=== PATIENT | male | born 1945 | race Caucasian/White ===

== ENCOUNTER 2016-10-18 09:45 | Day surgery (SDC) | payer OTHER ==
[2016-10-18] MEDS ORDERED: BENADRYL ONE (09:49)
[2016-10-18] MEDS ORDERED: TYLENOL ONE (09:49)
[2016-10-18] MEDS ORDERED: NS 250 ML ONE (09:50)
[2016-10-18 11:01] VITALS: BP 122/58
== END 2016-10-18 11:10 | disposition home or self-care (01) ==
LOC: OPS 09:45
PROVIDERS: ATTEND Internal Medicine Medical Oncology
DX: D69.6 Thrombocytopenia, unspecified (principal); Z79.899 Other long term (current) drug therapy
CPT/HCPCS: 36415; 36430; 86850; 86900; 86901; 86920; J1200; J7050; P9035

== ENCOUNTER 2017-03-03 18:10 | Inpatient (IN) ==
--- NOTE | 2017-03-03 18:51 | Diag Imaging Result Doc PS360 ---
EXAM: CHEST-PORTABLE HISTORY: confusion, poss sepsis TECHNIQUE: AP portable upright at 1840 COMMENT: There is COPD. The heart size and pulmonary vascularity are within normal limits. There are no previous studies. There is a suprahilar opacity in the right upper lobe suspicious for neoplasm. Comparison with previous radiographs would be helpful. 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 IMPRESSION: COPD. Pneumonia versus mass in the right upper lobe. Advise further evaluation and/or comparison with previous studies. Electronically signed by Jair Lima 03/03/2017 6:49 PM
[2017-03-03 19:00] LABS: HEMOGLOBIN 4.4 g/dL (14.0-18.0); INR 1.31; PTT 20.9 Seconds (22.0-36.0)
[2017-03-03 19:01] LABS: PLT < 6 X1000 (130-400)
[2017-03-03 19:02] LABS: BASO% 0.3 % (0.0-0.8); EOS# 0.01 X1000 (0.0-0.7); EOS% 0.3 % (0.0-10.0); HEMATOCRIT 13.5 % (42.0-52.0); IMM GRAN# 0.09 X1000 (0.0-0.04); IMM GRAN% 3.1 % (0.0-0.5); LYMPH# 0.95 X1000 (1.2-3.4); LYMPH% 32.6 % (20.5-51.1); MANUAL DIFF NEEDED? NO; MCH 30.1 PG (27-31); MCHC 32.6 g/dL (33-37); MCV 92.5 FL (81-99); MONO# 1.77 X1000 (0.11-0.59); MONO% 60.8 % (1.7-9.3); NEUT% 2.9 % (42.2-75.2); RBC 1.46 XMIL (4.7-6.1)
[2017-03-03 19:24] LABS: ALBUMIN 3.6 g/dL (3.5-5.0); CALCIUM 8.3 mg/dL (8.8-10.2); POTASSIUM 4.3 mmol/L (3.5-5.1); TOTAL BILIRUBIN 0.65 mg/dL (0.20-1.00); TOTAL PROTEIN 6.5 g/dL (6.3-8.3)
--- NOTE | 2017-03-03 20:28 | Diag Imaging Result Doc PS360 ---
EXAM: HEAD W/O CONTRAST HISTORY: fall TECHNIQUE: CT of the head without contrast COMMENT: There is mucosal thickening in the right maxillary sinus and throughout the ethmoids worse on the right than the left. There is also mucosal thickening in the right sphenoid sinus which is much larger than the left. There is no evidence of acute bony abnormality. There is a lucent lesion in the right parietal bone laterally which is probably a prominent arachnoid granulation. No evidence of bleed or mass effect is present. There are calcifications in the vertebral and internal carotid arteries. There is focal lucency in the left frontal white matter. This is probably due to microvascular ischemic change. There are no previous studies available for comparison. IMPRESSION: No evidence of acute intracranial disease. Chronic microvascular ischemic change. Chronic sinus disease. Electronically signed by Jair Lima 03/03/2017 8:26 PM
--- NOTE | 2017-03-03 21:09 | HISTORY AND PHYSICAL ---
PRIMARY CARE PHYSICIAN: Dr. Dread Chamberlain. PRIMARY ONCOLOGIST: Dr. Ajit Dong. CHIEF COMPLAINT: Unresponsive and feeling weak. HISTORY OF PRESENT ILLNESS: This is a 71-year-old male with a past medical history of leukemia and COPD, who was brought to the emergency department by ambulance because the son had found him down on the floor. Patient lives next to his son. According to him, according to the patient too, the patient was feeling weak for the last couple of days. He was very tired. He was not sure if he was having a fever. He was coughing, but because of the COPD, he said that he had his usual cough pattern. He also reports diarrhea 6-10 times that started today. He also reported black stools that started today too. It is important to remark that 1 week ago, he went to see Dr. Dong, and apparently they checked the CBC, so he was sent to the ER at [facility], where he received 2 units of blood and also platelets, and then he was discharged. In the ER, he was evaluated and found to have a hemoglobin of 4.4, with platelets of less than 6000, and neutrophil count of 80 absolute count, so he is being admitted to the hospital for further stabilization and treatment. PAST MEDICAL HISTORY: 1. COPD. 2. Leukemia. He does not recall the specific type of leukemia this patient has. PAST SURGICAL HISTORY: 1. Appendectomy. 2. Back surgery. SOCIAL HISTORY: He denies drinking alcohol, smoking tobacco, or using drugs. He lives alone, but the son lives next door. ALLERGIES: He reports no known drug allergies. REVIEW OF SYSTEMS: All 11 systems were reviewed, and all symptoms are related to H P. PHYSICAL EXAMINATION: VITAL SIGNS: Temperature 97.9 degrees, heart rate 111, respiratory rate 26, blood pressure 103/53, O2 saturation 94% on room air. GENERAL: This is a chronically ill-looking, cachectic, malnourished 71-year-old male, lying in bed, in no acute distress. HEENT: Head: In the right eye, there is a small superficial hematoma around all of the orbit. Apparently, no trauma to the eye itself. No hemorrhage in the eye. Pupils equal, round, and reactive to light and accommodation. NECK: Supple. No JVD noted. No carotid bruits. No lymphadenopathy. No thyromegaly. CARDIOVASCULAR: S1-S2 heard. Tachycardic. No murmurs, gallops, or rubs. Regular rate and rhythm. RESPIRATORY: Decreased breath sounds globally. There is no wheezing. Patient is not using any accessory muscles or heavy work of breathing. ABDOMEN: Soft, nondistended to palpation. Bowel sounds present. No organomegaly. EXTREMITIES: No clubbing, cyanosis, or edema. Peripheral pulses present in both legs. NEUROLOGICAL: Patient alert oriented x3. Able to move 4 extremities. Cranial nerves 2-12 grossly normal. LABORATORY DATA: Remarkable for hemoglobin 4.4, hematocrit 13.5, platelets of less than 6000, neutrophil count 80, absolute neutrophil count. INR 1.31. Creatinine 2.1, with BUN 81. Glucose 223. ASSESSMENT: 1. Severe anemia. 2. Severe thrombocytopenia. 3. Leukemia. 4. Chronic obstructive pulmonary disease. PLAN: The patient is going to be admitted to the hospital because of the severe anemia and thrombocytopenia. We are going to consult Dr. Dong for this condition. In the ER, he has an order for 4 units of blood, plus 1 unit of platelets. We are going to check CBC tomorrow. As we mentioned before, patient was found on the floor, although upon my examination, the patient is oriented and awake, and also able to remember everything what happened. He is not sure for how long he was down. We are going to order a CT of the head, considering his high risk for intracranial bleeding. For chronic obstructive pulmonary disease, we are going to continue with nebulizations with DuoNeb every 2-4 hours as needed for shortness of breath. Also, we are going to provide IV fluids with normal saline at 75 mL/hour. His primary care physician, Dr. Dread Chamberlain, will resume his care tomorrow morning at 7 a.m. cc: Gustavo Ramos MD
[2017-03-03] MEDS ORDERED: DUONEB (A & A) INH PRN (21:14)
[2017-03-03] MEDS ORDERED: ZOFRAN IV PRN (21:14)
[2017-03-03] MEDS: PROTONIX IV SCH (22:12)
[2017-03-03] MEDS: NS 1,000 ML IV SCH (22:12)
[2017-03-03] MEDS: LYRICA PO SCH (22:12)
[2017-03-03] MEDS: SODIUM CHLORIDE 0.9% INJ SCH (22:12)
[2017-03-03] MEDS: MAXIPIME 1 GM/NS 1 GM/50 ML IVPB IV SCH (22:13)
[2017-03-03 22:47] LABS: CK INDEX 1.2 (0.0-2.5); CK-MB 2.88 ng/mL (0.0-5.0)
[2017-03-04 07:25] LABS: HEMATOCRIT 19.3 % (42.0-52.0); HEMOGLOBIN 6.1 g/dL (14.0-18.0); LYMPH% 18.7 % (20.5-51.1); MANUAL DIFF NEEDED? YES; MCH 26.9 PG (27-31); MCHC 31.6 g/dL (33-37); MONO% 80.9 % (1.7-9.3); MPV 10.8 FL (7.4-10.4); NEUT% 0.4 % (42.2-75.2); PLT 20 X1000 (130-400); RBC 2.27 XMIL (4.7-6.1)
[2017-03-04 07:32] LABS: CALCIUM 7.8 mg/dL (8.8-10.2); POTASSIUM 4.1 mmol/L (3.5-5.1)
[2017-03-04 07:58] LABS: LYMPHS 30 % (21-51); MONO 66 % (1-9)
[2017-03-04] MEDS: ZANTAC PO SCH ×2 (09:07→21:48)
[2017-03-04] MEDS: PERCOCET-5 PO PRN ×4 (09:07→23:12)
[2017-03-04] MEDS: LYRICA PO SCH ×2 (09:08→21:48)
[2017-03-04] MEDS: MAXIPIME 1 GM/NS 1 GM/50 ML IVPB IV SCH ×2 (09:54→21:47)
[2017-03-04] MEDS: SODIUM CHLORIDE 0.9% INJ SCH (09:55)
[2017-03-04] MEDS: PROTONIX IV SCH ×3 (09:55→21:49)
[2017-03-04] MEDS: NS 1,000 ML IV SCH ×2 (10:40→21:48)
--- NOTE | 2017-03-04 14:37 | PROGRESS NOTE ---
DATE: 03/04/2017 SUBJECTIVE: The patient has no complaints. We discussed his ongoing treatment and the situation he is in now. We were hard pressed to get him to admit that he actually had dark stools but his son confirmed that he was having very dark stools and this was a new finding for him. OBJECTIVE: Vital signs: Temperature 97.5 degrees, 71, 17, 128/90. General: He is a thin white male, in no acute distress. He is alert, oriented, conversive, and appropriate. He does have obvious signs of weight loss when compared to the last time I saw him. He has a slight ecchymosis under the right eye. He has blood infusing. Cardiovascular: Regular. Lungs: Are clear. Extremities: No peripheral edema. ASSESSMENT AND PLAN: 1. The patient is pancytopenic and has been transfused 4 units of red cells. We will recheck his blood count in the morning. Platelet count is 20,000. I will allow any decision making in regards transfusion of platelets to Dr. Dong. 2. The patient's low white cell count is being addressed as a neutropenic situation, he is getting some broad-spectrum antibiotics until this level comes up if indeed it does so at all. 3. The patient requests pain medications which were written for him. He knows that he can ask for those p.r.n. 4. Consultation with Dr. Dong is today. cc: Dread Chamberlain MD
--- NOTE | 2017-03-04 16:35 | CONSULTATION ---
DATE OF CONSULTATION: 03/04/2017 REASON FOR CONSULT: The patient is known to us with acute leukemia/MDS and also ITP with positive antiplatelet antibody. 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 He is status post cycle 2 of Dacogen last on February 20, he is also receiving Nplate last on 02/26. He is essentially transfusion- dependent. We saw him in our office on 02/26 where white count was 2.5, granulocytes were 600, hemoglobin 7.8, hematocrit 24.3, and platelet count of 3000 and we sent him for 1 unit of single donor platelets at that time. We are not giving him any Neupogen due to increased blasts. His son apparently found the patient on the floor several days ago after he had been feeling weak over the last couple days and black diarrhea 6-10 times a day. He does have a cough that is stable. He does have known COPD. Denies any fever or chills, new lumps, bumps or worsening bone pain. Upon admission to the ER white count was 2.9, hemoglobin 4.4, hematocrit 13.5, platelet count was less than 6 and 4 units of PRBCs have been ordered along with 1 unit of platelet. He has received the platelets and 4 units packed red cells are infusing. Repeat labs this morning showed a white count of 4.82, hemoglobin of 6.1 and a platelet count of 20,000. He still has 1 more unit of PRBCs to be transfused. He has also been placed on cefepime. Imaging has been obtained of his head. Head CT showed no acute intracranial processes. Chest x-ray showed suprahilar opacity right upper lobe. He is currently on cefepime. REVIEW OF SYSTEMS: Negative unless indicated in the HPI. 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 3. COPD. 4. 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 ALLERGIES: No known allergies. SOCIAL HISTORY: Patient denies alcohol, illicit drugs or tobacco use. PHYSICAL EXAMINATION: Vital Signs: Stable. Constitutional: This is a frail- appearing male in no acute distress. HEENT: Head is normocephalic, atraumatic. Pupils equal, round, symmetric. Mucous membranes are dry. Cardiovascular: S1, S2 audible auscultation with no heaves, lifts, thrills, or murmurs. Pulmonary: Diminished bilateral breath sounds with normal respiratory effort. Abdomen: Soft, nontender. Positive bowel sounds in all 4 quadrants. Skin: No petechiae, ecchymosis or rash. Musculoskeletal: Moves all extremities. Neurologic: Alert, orient x3. LABORATORY DATA: Imaging as above. White count 4.82, hemoglobin 6.1, platelet count 20,000. ASSESSMENT AND PLAN: 1. 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 He is on Dacogen and Nplate and he is transfusion dependent at this time. 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 Transfuse on a p.r.n. basis. His counts have improved after transfusion but patient is transfusion dependent. Would not give it any Neupogen due to increased blasts. He is currently on cefepime at this time. 2. Chronic obstructive pulmonary disease. Chest x-ray showed pneumonia versus right upper lobe mass. May require a CT scan, again he is on cefepime. 3. Diarrhea is improved. Per primary care. Dictated by AMY Mendez for Ajit Dong MD cc: AMY Mendez MD Timothy P. Weirich, MD [facility] MED[facility] CENTERJace
[2017-03-05] MEDS: NS 1,000 ML IV SCH ×2 (01:11→16:27)
[2017-03-05 06:35] LABS: EOS# 0.03 X1000 (0.0-0.7); HEMATOCRIT 21.8 % (42.0-52.0); HEMOGLOBIN 7.2 g/dL (14.0-18.0); IMM GRAN# 0.02 X1000 (0.0-0.04); IMM GRAN% 0.6 % (0.0-0.5); LYMPH# 0.78 X1000 (1.2-3.4); LYMPH% 25.1 % (20.5-51.1); MANUAL DIFF NEEDED? YES; MCH 28.1 PG (27-31); MCV 85.2 FL (81-99); MONO# 2.22 X1000 (0.11-0.59); MONO% 71.4 % (1.7-9.3); MPV 10.6 FL (7.4-10.4); NEUT% 1.9 % (42.2-75.2); RBC 2.56 XMIL (4.7-6.1)
[2017-03-05 06:48] LABS: PLT 9 X1000 (130-400)
[2017-03-05 06:50] LABS: AGAP 11; BUN 40 mg/dL (8-22); CALCIUM 7.2 mg/dL (8.8-10.2); CHLORIDE 105 mmol/L (98-107); COSMO 284; SODIUM 137 mmol/L (136-145); TCO2 21 mmol/L (25-35)
[2017-03-05 07:13] LABS: LYMPHS 36 % (21-51); MONO 44 % (1-9); NRBC 1 % (0-0)
[2017-03-05] MEDS ORDERED: BENADRYL IV ONE (07:56)
[2017-03-05] MEDS ORDERED: TYLENOL PO ONE (07:56)
--- NOTE | 2017-03-05 08:02 | PROGRESS NOTE ---
DATE: 03/04/2017 This was dictating yesterday at the nursing station but unfortunately the note has disappeared from the computer systems. This is a dictation for the day of 03/04/2017. SUBJECTIVE: Patient was admitted overnight with low blood counts. An order for 4 units of packed red cells was given as well as a consult for Dr. Dong. This is pending at the time of original note dictation 03/04/2017. The patient states he has received 3 units of packed red cells and is on his 4th unit now. He feels a little bit better. He states that he needs more pain medication. I spoke at length with the patient's son who is at bedside. The patient was reluctant to admit that he had dark stools but the patient's son confirmed this. He denies the use of Pepto-Bismol. OBJECTIVE: Vital Signs: Temperature 97.6, blood pressure 114/53, pulse 77, respiratory rate of 18, 100% saturated on 2 L nasal cannula. General: Thin, pale, white male, in no acute distress. He is alert, oriented, conversive, and appropriate. Lungs: Clear. CV: Regular. Extremities: Show no pitting edema. LABORATORIES: The morning laboratory showed a hemoglobin of 6.1 which is up from 4.4. His platelet count was 20,000 this morning. ASSESSMENT AND PLAN: 1. Dr. Dong will consult. Will continue to transfuse. I am quite sure that his profound anemia is multifactorial by his chronic anemia, chemotherapeutic agents, and possibly GI blood loss now. We will continue to recheck this on a regular basis and transfuse as needed. 2. The patient's pain medication will be continued in the hospital. We will adjust this as necessary to maintain comfort levels. 3. The remainder of the home medications will remain as they were previously. cc: Dread Chamberlain MD
[2017-03-05] MEDS: LYRICA PO SCH ×2 (08:27→21:17)
[2017-03-05] MEDS: NORCO-10 PO SCH ×3 (08:27→18:15)
[2017-03-05] MEDS: ZANTAC PO SCH ×2 (08:28→21:17)
[2017-03-05] MEDS: PROTONIX IV SCH ×2 (08:28→21:17)
[2017-03-05] MEDS: SODIUM CHLORIDE 0.9% INJ SCH ×2 (08:28→21:17)
--- NOTE | 2017-03-05 09:06 | PROGRESS NOTE ---
DATE: 03/05/2017 SUBJECTIVE: Patient complained of accessibility to stronger pain medications. He states he has had a headache for about 3 days behind his right eye and now he has had a headache behind his right eye for 8 days. It waxes and wanes and does not seem to be abating. We discussed the patient's overall situation and Dr. Dong's nurse practitioner was present for this as well. OBJECTIVE: Vital Signs: Temperature is 99 degrees, pulse rate 82, blood pressure is 111/48. General: Patient is alert, oriented, conversive, and appropriate. He is sitting up in bed eating breakfast. He states he is not having significant increase in pain at the present time. He does not appear to have any motor or neurological deficits. Cardiovascular: Regular. Lungs: Clear. LABORATORIES: White cell count is 3.1 with an absolute neutrophil count of approximately 600, platelet count is 9000. Hemoglobin 7.2 with hematocrit 21.8. Serum chemistries are normal. ASSESSMENT AND PLAN: 1. The patient will be transfused a unit of platelets, as well as a unit of packed red cells. We will continue to monitor his absolute neutrophil count. He will continue on intravenous antibiotics until his absolute neutrophil count is greater than 1000. 2. The patient has been prescribed 3 times a day oral pain medication, as well as intravenous pain medication for breakthrough. He has Restoril ordered for sleep. cc: Dread Chamberlain MD
[2017-03-05] MEDS: MAXIPIME 1 GM/NS 1 GM/50 ML IVPB IV SCH ×2 (16:26→21:17)
[2017-03-05] MEDS: MORPHINE IV PRN ×2 (16:40→21:17)
[2017-03-05] MEDS: RESTORIL PO SCH (21:17)
[2017-03-06] MEDS: NS 1,000 ML IV SCH ×3 (06:16→17:25)
[2017-03-06 06:24] LABS: HEMATOCRIT 26.7 % (42.0-52.0); HEMOGLOBIN 8.6 g/dL (14.0-18.0); LYMPH# 1.13 X1000 (1.2-3.4); LYMPH% 34.6 % (20.5-51.1); MANUAL DIFF NEEDED? YES; MCH 27.7 PG (27-31); MCHC 32.2 g/dL (33-37); MCV 85.9 FL (81-99); MONO# 2.01 X1000 (0.11-0.59); MONO% 61.5 % (1.7-9.3); RBC 3.11 XMIL (4.7-6.1)
[2017-03-06 06:25] LABS: PLT 28 X1000 (130-400)
[2017-03-06] MEDS: MORPHINE IV PRN ×3 (06:30→23:13)
[2017-03-06 06:31] LABS: LYMPHS 32 % (21-51); MONO 28 % (1-9)
[2017-03-06 06:37] LABS: AGAP 11; BUN 23 mg/dL (8-22); CALCIUM 7.5 mg/dL (8.8-10.2); CHLORIDE 100 mmol/L (98-107); COSMO 274; POTASSIUM 4.5 mmol/L (3.5-5.1); SODIUM 135 mmol/L (136-145); TCO2 24 mmol/L (25-35)
--- NOTE | 2017-03-06 08:54 | PROGRESS NOTE ---
DATE: 03/06/2017 SUBJECTIVE: The patient has no stated problems. He admits that the bowel movement he had yesterday appeared to be a stool which contained blood. He stated it was black. He is eating well. OBJECTIVE: Vital Signs: 98.9, 90, 112/49, 94% saturated on room air. Physical Examination: General: He is a well-developed, thin, white male in no acute distress. Lungs: Clear. Cardiovascular: Regular. Extremities: No edema. Laboratory: The patient's platelet count is 28,000 post transfusion. His hematocrit is 26.7 post transfusion. Absolute neutrophil count was not reportable. There were 38 segmented neutrophils noted. It would require a manual differential to go beyond that description. Serum electrolytes were normal. Creatinine 0.6. It is noted that when the patient came in, his BUN and creatinine were markedly elevated. That too would be consistent with GI bleeding. ASSESSMENT: 1. The patient's profound anemia is indeed multifactorial. His Hemoccult was positive for blood. Laboratory as well as the recovery of those values has been consistent with gastrointestinal bleeding. He is clearly suffering long-term bone marrow insult from the transformation of his myelodysplastic syndrome but he also suffered, I think, a gastrointestinal bleed. The patient has been put on the pantoprazole and sucralfate. We will continue to monitor his stools for the presence of blood. We will continue to monitor his blood count. 2. I had a long discussion with the patient and his son. I told him that in the face of acute gastrointestinal bleeding, we would normally use upper endoscopy to investigate but in his case, with a low platelet count and low white cell count, it was not advisable. We will continue to monitor blood counts and stools as stated earlier. 3. I also spoke at length with the patient in regard to his long-term prognosis. He knows that it is a grim prognosis and I frankly stated that if his bone marrow shut down completely that his time would be short. I got him to verbally agree that he would not do anything to harm himself and I told him I would be perfectly andrae with him and that when there was truly no hope for any meaningful life that I would tell him up front. At that point, we could enjoin hospice services. 4. The patient had some papers for a living will and healthcare proxy which need to be signed. We will try and get the patient advocate up here to help him getting those signatures. cc: Dread Chamberlain MD
[2017-03-06] MEDS: ZANTAC PO SCH ×2 (09:41→20:27)
[2017-03-06] MEDS: PROTONIX IV SCH ×2 (09:42→20:26)
[2017-03-06] MEDS: SODIUM CHLORIDE 0.9% INJ SCH ×2 (09:42→20:26)
[2017-03-06] MEDS: NORCO-10 PO SCH ×3 (09:42→20:27)
[2017-03-06] MEDS: LYRICA PO SCH ×2 (09:48→20:26)
[2017-03-06] MEDS: CARAFATE PO SCH ×4 (09:48→20:27)
[2017-03-06] MEDS: MAXIPIME 1 GM/NS 1 GM/50 ML IVPB IV SCH (14:57)
[2017-03-06] MEDS: RESTORIL PO SCH (20:26)
[2017-03-07] MEDS: MAXIPIME 1 GM/NS 1 GM/50 ML IVPB IV SCH ×2 (04:21→15:41)
[2017-03-07] MEDS: NS 1,000 ML IV SCH (04:21)
[2017-03-07 07:32] LABS: EOS% 3.4 % (0.0-10.0); HEMOGLOBIN 8.7 g/dL (14.0-18.0); IMM GRAN# 0.02 X1000 (0.0-0.04); IMM GRAN% 0.7 % (0.0-0.5); LYMPH# 0.97 X1000 (1.2-3.4); LYMPH% 32.8 % (20.5-51.1); MANUAL DIFF NEEDED? YES; MCH 27.9 PG (27-31); MCHC 32.2 g/dL (33-37); MCV 86.5 FL (81-99); MONO# 1.84 X1000 (0.11-0.59); MONO% 62.2 % (1.7-9.3); MPV 10.8 FL (7.4-10.4); NEUT% 0.9 % (42.2-75.2); PLT 17 X1000 (130-400); RBC 3.12 XMIL (4.7-6.1)
[2017-03-07 07:37] LABS: AGAP 8; BUN 17 mg/dL (8-22); CALCIUM 7.8 mg/dL (8.8-10.2); CHLORIDE 98 mmol/L (98-107); COSMO 269; EOS 4 % (1-10); LYMPHS 36 % (21-51); MONO 56 % (1-9); POTASSIUM 4.4 mmol/L (3.5-5.1); SODIUM 133 mmol/L (136-145); TCO2 27 mmol/L (25-35)
[2017-03-07] MEDS: ZANTAC PO SCH ×2 (08:18→20:41)
[2017-03-07] MEDS: CARAFATE PO SCH ×4 (08:18→20:41)
[2017-03-07] MEDS: LYRICA PO SCH ×2 (08:18→20:41)
[2017-03-07] MEDS: NORCO-10 PO SCH ×3 (08:18→20:41)
[2017-03-07] MEDS: PRILOSEC PO SCH ×2 (08:23→20:41)
--- NOTE | 2017-03-07 08:31 | PROGRESS NOTE ---
DATE: 03/07/2017 SUBJECTIVE: The patient states that he has had no adverse events through the day yesterday or overnight. He slept well. He is eating well. He wants to remove some of the tethers associated with his hospitalization. He had a bowel movement this morning. He said that it was brown, but no dark black stools were noted. He has had no signs of obvious bleeding. PHYSICAL EXAMINATION: Vital Signs: 97.9, 86, 127/53. General: He is a well-developed, thin, white male. He is alert, oriented, conversive and appropriate. Lungs: Clear. Heart: Regular. LABORATORY: White cell count 2.9. Hematocrit is 27, platelet count 17,000, absolute neutrophil count is 300, serum electrolytes are normal. Creatinine 0.5. ASSESSMENT AND PLAN: 1. The patient will remain in the hospital for least an additional day. We will discontinue IV fluids and IV pantoprazole. We will change him over to an oral proton pump inhibitor. 2. We will check a CBC and BMP in the morning and transfuse as necessary. 3. The patient will continue on intravenous antibiotics due to low white cell count. 4. Pain is well controlled. 5. Overall plan is that the patient's blood count seems stable or if we need to transfuse him up a bit tomorrow then we will do so and hopefully discharge him home with follow up on Saturday. cc: Dread Chamberlain MD
--- NOTE | 2017-03-07 12:10 | PALLIATIVE CARE CONSULTATION ---
DATE: 03/07/2017 REQUESTING PHYSICIAN: Dr. Chamberlain. REASON FOR CONSULTATION: Goals of care. HISTORY OF PRESENT ILLNESS: This is a 71-year-old, male with a past medical history of MDS converting to AML, ITP with positive antiplatelet antibodies, COPD and thrombocytopenia. He was most recently admitted on 03/03/2017 after his son found him at home unresponsive. It is reported that he had shown progressive weakness in the days prior to this admission. It is also reported that he had multiple episodes of bloody diarrhea on the day of admission. Mr. Anand is followed by Dr. Dong. He is essentially transfusion dependent at this time. Currently he is sitting up in the hospital bed. He does not complain of pain at this time but states that he has experienced episodes of pain behind his right eye over the last 12 days. He feels like this is related to a sinus issue. He denies needing assistance with his activities of daily living. He denies shortness of breath, anxiety and nausea. His son is at the bedside. The palliative care team has been consulted to assist with goals of care. REVIEW OF SYSTEMS: Twelve point review of system has been conducted and otherwise negative except those mentioned in the HPI. PAST MEDICAL HISTORY: See HPI. PAST SURGICAL HISTORY: 1. Appendectomy. 2. Back surgery. SOCIAL HISTORY: Prior to this admission he lived at home alone. He is not . He has 2 children, one who lives local, one who lives in [place]. Alcohol, tobacco and drug use have been denied. PHYSICAL EXAM: General: This is a chronically ill-appearing, 71-year-old, male who does not appear to be in any acute distress. HEENT: Atraumatic, normocephalic. Neck: Supple. Cardiovascular: Regular rate and rhythm. Pulmonary: Lung sounds are diminished. Respirations are nonlabored. Abdomen: Soft. Bowel sounds are active. Extremities: Pulses are palpable. No edema noted. Neurologic: Awake, alert, oriented to person, place and time. IMPRESSION: This is a 71-year-old, chronically ill-appearing, male with a past medical history as listed above in the HPI. I met with Mr. Anand and his son to discuss goals of care. Mr. Anand has an advanced directive however it has not been signed in entirety as it is missing the witnesses needed to complete the document. He has requested to be a DNR level 1. That order is presently in the EMR. It appears that Mr. Anand's palliative performance scale is 70%. We discussed the outpatient palliative care program. I feel that Mr. Anand is appropriate for this program as he continues to proceed with frequent blood transfusions and chemotherapy. He requested more written information regarding the program and that was given. As mentioned he has no acute complaints at this time. The palliative care team will continue to follow. Thank you for this consultation. Dictated by AMY Traylor for Jez Bundy MD cc: AMY Traylor MD Timothy P. Weirich, MD
[2017-03-07] MEDS: RESTORIL PO SCH (20:41)
[2017-03-08] MEDS: MORPHINE IV PRN ×2 (00:23→12:32)
[2017-03-08] MEDS: MAXIPIME 1 GM/NS 1 GM/50 ML IVPB IV SCH ×2 (04:11→15:38)
[2017-03-08] MEDS: PRILOSEC PO SCH (06:18)
[2017-03-08 07:00] LABS: EOS# 0.02 X1000 (0.0-0.7); EOS% 0.7 % (0.0-10.0); HEMATOCRIT 28.2 % (42.0-52.0); HEMOGLOBIN 9.1 g/dL (14.0-18.0); LYMPH# 1.11 X1000 (1.2-3.4); LYMPH% 38.8 % (20.5-51.1); MANUAL DIFF NEEDED? NO; MCH 27.7 PG (27-31); MCHC 32.3 g/dL (33-37); MONO# 1.66 X1000 (0.11-0.59); MPV 11.5 FL (7.4-10.4); NEUT% 2.5 % (42.2-75.2); RBC 3.28 XMIL (4.7-6.1)
[2017-03-08 07:05] LABS: PLT 12 X1000 (130-400)
[2017-03-08] MEDS: NORCO-10 PO SCH ×2 (10:17→15:38)
[2017-03-08] MEDS: LYRICA PO SCH (10:17)
[2017-03-08] MEDS: CARAFATE PO SCH ×2 (10:18→12:33)
[2017-03-08] MEDS: ZANTAC PO SCH (10:18)
[2017-03-08 11:19] VITALS: BP 115/47
[2017-03-09] MEDS ORDERED: LEVAQUIN PO SCH (09:00)
--- NOTE | 2017-03-11 07:29 | DISCHARGE SUMMARY ---
ADMISSION DATE: 03/03/2017 DISCHARGE DATE: 03/08/2017 DISCHARGE DIAGNOSES: 1. Myelodysplastic syndrome with leukemic transformation, aplastic anemia. 2. Upper gastrointestinal bleed. 3. Acute blood loss anemia. 4. Thrombocytopenia. 5. Leukopenia. 6. Low-grade fever. 7. Spontaneous ecchymoses. CONSULTATIONS: Ajit Dong MD. HOSPITAL COURSE: 1. This unfortunate, 71-year-old, white male was admitted more or less for lethargy. He was found by his son at home, did not want to get up. He was pale and weak. He was brought in and found to have a hemoglobin of 4. His platelet count was 12,000 and his white cell count was 3000 with an absolute neutrophil count less than 500. He was brought into the hospital and started on antibiotics for a low absolute neutrophil count. He was transfused I believe a total of 4 units during his hospitalization. His red cell count was increased to the point where his hematocrit was around 28. The patient was transfused 2 units of platelets during his hospitalization. 2. In review of the patient, he stated that he had some dark stools and we did a Hemoccult of these stools in the hospital, and they were found to be positive. He was put on omeprazole 20 mg twice daily as well as sucralfate 4 times daily. He is to continue his Zantac twice daily. He interestingly has had no pain associated with that. Because of his absolute neutrophil count, overall developed debilitating condition, we do not feel it appropriate that we introduce any scoping procedures into his workup. He understood this and was in agreement. 3. The patient's pain was controlled with regular [place] and occasional additional morphine shots. 4. At the time of discharge, the patient was stable and ready to go home. He was discharged after receiving his 2nd unit of platelets. He was also discharged on some Levaquin antibiotics, although up to this point, even as an outpatient, he had not shown any signs of febrile neutropenia other than an initial low-grade fever when he was admitted. He does not have any fevers during his hospitalization. 5. Dr. Dong was consulted. We had several long conversations about this man's prognosis. Unfortunately, his transfusion requirements have recently gone up. I think perhaps this was exacerbated greatly by the GI bleeding. There is very little that we can do other than supportive therapy for him. This was explained to him by myself and by Dr. Dong. He was also instructed that when the time came that there was nothing us for us to do for him, we would let him know. Palliative care consult was undertaken as well. 6. The patient was discharged home in reasonable condition. He is to follow up Saturday I think with Dr. Dong and they are going to recheck his blood counts and see if any other transfusion is necessary at the present time. New medications include omeprazole 20 mg twice daily, sucralfate 1 g 4 times daily, and Levaquin 500 mg p.o. daily. cc: Dread Chamberlain MD
--- NOTE | 2017-03-14 14:45 | PROVIDER DOCUMENTATION ---
This chart was entered by Mao Cole Scribe, acting as scribe for Sandeep Calvillo MD. HPI-General Adult - General Chief Complaint: Weakness Stated Complaint: CONFUSED,LETHARGIC,WEAKNESS Time Seen by Provider: 03/03/17 18:36 Source: patient, family Allergies/Adverse Reactions: Patient Allergies Allergy/AdvReac Type Severity Reaction Status Date / Time No Known Allergies Allergy Verified 03/19/17 16:42 Home Medications: Home Medication List Medication Instructions Recorded Confirmed Last Taken Type Albuterol Sulfate [Proventil Hfa] 2 puff IH PRN PRN 07/29/15 03/30/17 03/30/17 History Ranitidine HCl 150 cap PO BID 03/03/17 03/30/17 03/29/17 07:00 History Vitamin B Complex [B-50 Complex] 1 tab PO DAILY 03/03/17 03/30/17 03/29/17 07: 00 History Omeprazole [Prilosec] 20 mg PO BID@0700,2100 #60 capsule 03/08/17 03/30/1703/29 07:00 Rx Sucralfate [Carafate] 1 gm PO 4XDAY #120 tablet 03/08/17 03/30/17 03/30/17 Rx Multivitamin [Multi-Day Vitamins] 1 each PO DAILY 03/12/17 03/30/17 03/29/17 07: 00 History Acetaminophen [Tylenol] 650 mg PO TID tablet 03/27/17 03/30/17 03/30/17 Rx Morphine Ir 45 mg PO Q2H PRN PRN #100 tablet 03/27/17 03/30/17 03/30/17 Rx Polyethylene Glycol 3350 [Miralax] 17 gm PO Q6H PRN PRN #0 powder, 03/27/17 Unknown Rx packet Temazepam [Restoril] 30 mg PO QHS capsule 03/27/17 03/30/17 03/29/17 Rx Furosemide [Lasix] 20 mg PO DAILY 03/30/17 03/30/17 03/30/17 History - History of Present Illness -Gen Adult Nature of Presenting Problems: Pt is a 71 yowm who presents to ER via EMS after family found pt lying in the bathroom floor at home. Pt has hx of leukemia. Family at bedside reports that pt has been moderately weak and lethargic all day (Pt usually very active). Son at bedside reports that 2 weeks ago, pt had to receive 3 units of blood at [place] after leaving Dr. Dong's office. Pt's [id number] report that when pt fell in the bathroom, she noticed dark stool in the toilet bowl. On exam, pt is fully A/A/O x3, and states that his advanced directive (son at bedside verified) is "if there is no hope of recovery, do not put on life support," and should pt's heart stop while in ER, pt states he does not want to be resuscitated. Location of Pain/Injury: reports: none Pain Radiation: reports: no radiation Quality of Pain: reports: other (weakness) Severity: reports: moderate Onset/Duration: reports: this morning Timing: reports: still present Associated Symptoms: reports: fatigue, fever/chills, loss of appetite, shortness of breath, weakness, trouble walking. denies: anxiety, arm pain, back /neck pain, chest pain, constipation, cough, diarrhea, dizziness, EENT symptoms , headaches, heartburn, joint pain, muscle aches, nausea, syncope, vomiting Similar Symptoms Previously?: Yes Recently seen or treated by another doctor?: Yes Review of Systems - Adult - REVIEW OF SYSTEMS - ADULT Constitutional: reports: chills, fever, fatique. denies: night sweats, weight gain, weight loss Eyes: reports: no symptoms reported Ears, Nose, Mouth & Throat: reports: no symptoms reported Cardiovascular: reports: no symptoms reported Respiratory: reports: shortness of breath. denies: chronic cough, cough, dyspnea on exertion, excessive sputum production, hemoptysis, pleurisy, wheezing Gastrointestinal: reports: no symptoms reported Genitourinary: reports: no symptoms reported Musculoskeletal: reports: muscle weakness. denies: bone pain, back pain, frequent leg cramps, joint pain, joint swelling, muscle aches, neck pain Integumentary: reports: no symptoms reported Neurological: reports: no symptoms reported Psychiatric: reports: no symptoms reported Endocrine: reports: no symptoms reported Hematologic/Lymphatic: reports: no symptoms reported Allergic/Immunologic: reports: no symptoms reported All Other Systems: Reviewed and Negative Past History - Adult - PAST MEDICAL HISTORY-ADULT Review of Records: reports: Nursing Assessment Review, Medications Reviewed - IMMUNIZATION STATUS Childhood Immunizations: See Nurse Assessment Flu Vaccine: See Nurse Assessment Physical Exam-General - PHYSICAL EXAM-ADULT Initial Vital Signs Reviewed: Yes - CONSTITUTIONAL General Appearance: appears well, alert, no apparent distress, cachetic, lethargic - EYES Eyes: PERRL/EOMI, pink conjunctivae, pale conjunctivae - HEAD, EARS, NOSE, MOUTH & THROAT HENMT: normocephalic/atraumatic, moist mucous membranes, normal ENT inspection, TMs normal, pharynx normal - NECK Neck: non-tender, full range of motion, supple, normal inspection. negative: C- spine tenderness, limited range of motion, lymphadenopathy - RESPIRATORY Respiratory: chest non-tender, lungs clear, normal breath sounds, no pleuratic chest pain, no respiratory distress, no accessory muscle use. negative: respiratory distress, decreased breath sounds, accessory muscle use, wheezing - CARDIOVASCULAR Cardiovascular: normal peripheral pulses, tachycardia. negative: regular rate, rhythm, bradycardia, irregularly irregular - GASTROINTESTINAL (ABDOMEN) Abdominal Exam: normal bowel sounds, non tender, soft, no organomegaly, no pulsatile mass. negative: abnormal bowel sounds, distended, tenderness - MUSCULOSKELETAL Back Exam: other (too weak to sit up) Extremity: normal range of motion, non-tender, normal gait, normal inspection, no pedal edema, no calf tenderness, normal capillary refill. negative: deformity, erythema, inflammation, swelling, tenderness - SKIN Integumentary: normal color, normal turgor, warm/dry, pallor, other (Pt with hx of anemia, reports bruises easily). negative: abrasion(s), diaphoresis, ecchymosis, erythema, laceration(s), swelling, tenderness, warm - NEUROLOGIC Neurologic: hat renovator II-XII nml as tested, grossly normal, no motor/sensory deficits . negative: facial droop, focal weakness, motor weakness, sensory deficit - PSYCHIATRIC Psych/Mental Status: normal mood/affect, normal thought content, normal thought process, oriented x 3, depressed affect Progress - PLAN OF CARE/RESULTS Progress/Plan/Lab Results: Vital Signs - 8 hr 03/03/17 18:23 Temperature 97.9 F Pulse Rate 111 H Respiratory Rate 26 H Blood Pressure 103/53 O2 Sat by Pulse Oximetry 94 L Orders Category Date Time Status Cardiac Monitoring DIRECTED Care 03/03/17 18:31 Active IV Insertion ORDERED Care 03/03/17 18:31 Completed Notify MD of + Sepsis Screen NOW Care 03/03/17 18:31 Active CHEST-PORTABLE [RAD] Stat Exams 03/03/17 18:32 Completed BLOOD CULTURE [BLDCUL] Stat Lab 03/03/17 18:34 Ordered CBC WITH DIFF [HEME] Stat Lab 03/03/17 18:28 Results CK PROFILE [SP CHEM] Stat Lab 03/03/17 18:34 Ordered COMPREHENSIVE METABOLIC PANEL [CHEM] Stat Lab 03/03/17 18:28 Received LACTATE, PLASMA [CHEM] Stat Lab 03/03/17 18:34 Ordered PROTIME WITH INR [COAG] Stat Lab 03/03/17 18:28 Received PTT [COAG] Stat Lab 03/03/17 18:28 Received TROPONIN T Stat Lab 03/03/17 18:28 Received Oxygen Device Stat Oth 03/03/17 18:31 Active Result Diagrams: 03/08/17 06:30 03/07/17 06:19 - XRAY 1 XRAY: Bilateral XRAY Study: Chest Impression: See EMR Report (COPD. Pna versus mass in right upper lobe. Advise further evaluation and/or comparison with previous studies. - Dr. Lima ( Radiologist)) XRAY Interpretation: See report - CONSULTS/PCP/HOSPITALIST Notification #1 *Consult/PCP/Hospitalist*: Dr. Morales (Hospitalist) Time Discussed: 19:30 Consult Disposition: Admit Departure - Departure Date of Disposition Decision: 03/03/17 Time of Disposition Decision: 19:31 DIAGNOSIS: Myelodysplasia (myelodysplastic syndrome) Anemia Qualifiers: Anemia type: other cause Disposition: ADMITTED INPATIENT 09 Certified Medical Emergency: Emergent Condition: Stable - Critical Care Note This patient required my direct & personal management of CC.: No This chart was documented by the indicated scribe, (Mao Cole Scribe) and accurately reflects the services I performed and decisions made by me, Sandeep Calvillo MD, as attested by the provider's signature.
--- NOTE | 2017-03-14 14:45 | ED EKG INTERP ---
This chart was entered by Mao Cole Scribe, acting as scribe for Sandeep Calvillo MD. EKG Interpretation - EKG Time of EKG reading by physician:: 18:19 EKG Read and Signed by:: Sandeep Calvillo EKG Interpretation (*Must complete 3 of following elements*): Abnormal ( Possible left atrial enlargement; Nonspecific ST and T wave abnormality) Rate: 118 Rhythm: Sinus tachycardia This chart was documented by the indicated scribe, (Mao Cole Scribe) and accurately reflects the services I performed and decisions made by me, Sandeep Calvillo MD, as attested by the provider's signature.
== END 2017-03-08 17:04 | disposition home or self-care (01) ==
LOC: ED 18:10 → 3N 21:05 → SUPCPDRO 21:05 → SUATTDRO 21:05
PROVIDERS: ADMIT Internal Medicine; ATTEND Internal Medicine

== ENCOUNTER 2017-03-21 14:03 | Inpatient (IN) ==
[2017-03-21] MEDS ORDERED: ZOFRAN IV PRN (15:16)
[2017-03-21] MEDS ORDERED: VANCOMYCIN IV PER PHARMACY MISC SCH (15:30)
[2017-03-21] MEDS: TYLENOL PO PRN ×2 (15:35→23:40)
--- NOTE | 2017-03-21 15:40 | CONSULTATION ---
DATE OF CONSULTATION: 03/21/2017 CHIEF COMPLAINT: Fever, neutropenia, sinusitis. HISTORY OF PRESENT ILLNESS: Patient is a 71-year-old male well known to our clinic. 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 He has received 2 cycles of Dacogen and recently started on his 3rd cycle. He developed severe retroorbital pain 2 days ago. He had low-grade fevers as well. He was diagnosed to have ethmoid sinusitis on an MRI. He has been on antibiotics for the last 2 days. However, developed fever of 101.5. He also has significant pain in his head and is taking morphine 45 mg every 2-4 hours as needed to control this. He is being admitted for neutropenic fever management. PAST MEDICAL HISTORY: Myelodysplastic syndrome/acute myeloid leukemia, idiopathic thrombocytopenia, COPD. ALLERGIES: No known drug allergies. SOCIAL HISTORY: Patient lives in [place]. He denies alcohol, drugs or substance abuse. FAMILY HISTORY: Noncontributory. CURRENT MEDICATIONS: Remeron 30 mg, temazepam 15 mg, morphine 45 mg p.r.n. REVIEW OF SYSTEMS: He reports fevers and chills overnight. He denies urinary tract symptoms. He denies cough, shortness of breath or chest pain. He complains of tiredness and fatigue from his anemia. He is transfusion dependent and requires repeated units of platelets and blood. All other review of systems are negative. PHYSICAL EXAMINATION: General: Patient is a is a thinly built male, who appears to be in pain, squinting his eyes. Vital signs: Temperature 102.9 degrees, pulse 106, blood pressure 149/50. Eyes: EOMI. PERRLA. Anicteric. Mucous membranes are moist. Cardiac: Regular rate and rhythm. Normal S1, S2. Chest: Clear to auscultation. Abdomen: Soft, nontender, without hepatosplenomegaly or masses. Extremities: No cyanosis, clubbing, or edema. Neurological: Alert and oriented x3. Mood no focal motor deficits. LABORATORY: Today, laboratory in the clinic revealed hemoglobin of 6.5 and platelets of 9000. ANC 0.3. ASSESSMENT/PLAN: 1. Neutropenic fever: Check blood cultures. Start him on Zosyn at full doses. Monitor closely and adjust antibiotics accordingly. 2. Ethmoid sinusitis: Plan as above. 3. Thrombocytopenia: Proceed with 2 units of single donor platelets, but he has been platelet transfusion dependent requiring platelets every week. 4. Anemia: Today we will hold off on transfusion and plan to transfuse him tomorrow if everything is okay. 5. Myelodysplastic syndrome/acute myeloid leukemia and pancytopenia: So far he still has wish to continue therapy and recently he was started on Dacogen cycle #3. cc: MD Dread Posadas MD
[2017-03-21] MEDS: MORPHINE IR PO PRN ×3 (15:52→20:13)
[2017-03-21] MEDS ORDERED: NS 250 ML ONE (16:01)
[2017-03-21 16:04] LABS: BASO% 0.3 % (0.0-0.8); EOS# 0.02 X1000 (0.0-0.7); EOS% 0.7 % (0.0-10.0); HEMATOCRIT 19.9 % (42.0-52.0); HEMOGLOBIN 6.4 g/dL (14.0-18.0); LYMPH# 0.57 X1000 (1.2-3.4); LYMPH% 19.2 % (20.5-51.1); MANUAL DIFF NEEDED? YES; MCH 28.1 PG (27-31); MCHC 32.2 g/dL (33-37); MCV 87.3 FL (81-99); MONO# 2.35 X1000 (0.11-0.59); MONO% 79.1 % (1.7-9.3); NEUT% 0.7 % (42.2-75.2); PLT 10 X1000 (130-400); RBC 2.28 XMIL (4.7-6.1)
[2017-03-21] MEDS: ZOSYN 3.375 GM/NS 3.375 GM/50 ML IVPB IV SCH ×2 (16:04→23:52)
[2017-03-21 16:06] LABS: AGAP 14; ALBUMIN 3.5 g/dL (3.5-5.0); ALKALINE PHOSPHATASE 65 U/L (32-122); BUN 19 mg/dL (8-22); CALCIUM 8.3 mg/dL (8.8-10.2); CHLORIDE 87 mmol/L (98-107); COSMO 255; GOT 11 U/L (10-34); GPT 13 U/L (10-44); POTASSIUM 4.3 mmol/L (3.5-5.1); SODIUM 125 mmol/L (136-145); TCO2 24 mmol/L (25-35); TOTAL BILIRUBIN 0.71 mg/dL (0.20-1.00); TOTAL PROTEIN 6.5 g/dL (6.3-8.3)
[2017-03-21 16:48] LABS: LYMPHS 24 % (21-51); MONO 64 % (1-9)
[2017-03-21] MEDS: CARAFATE PO SCH ×2 (17:52→20:13)
[2017-03-21] MEDS ORDERED: VANCOMYCIN 1.4 GM in NS 250 ML IV ONE (18:00)
[2017-03-21] MEDS: RESTORIL PO SCH (20:12)
[2017-03-21] MEDS: PRILOSEC PO SCH (20:13)
[2017-03-21] MEDS: PEPCID PO SCH (20:13)
[2017-03-21] MEDS ORDERED: REMERON PO SCH (21:00)
[2017-03-22] MEDS: TYLENOL PO PRN ×2 (00:01→08:08)
[2017-03-22] MEDS: NS 1,000 ML IV SCH ×2 (02:06→11:21)
[2017-03-22] MEDS: ZOSYN 3.375 GM/NS 3.375 GM/50 ML IVPB IV SCH ×3 (05:43→17:06)
[2017-03-22] MEDS: PRILOSEC PO SCH ×2 (06:32→20:27)
[2017-03-22] MEDS: MORPHINE IR PO PRN ×6 (06:52→20:13)
[2017-03-22] MEDS: CARAFATE PO SCH ×4 (08:08→20:27)
[2017-03-22] MEDS: THERA M PLUS PO SCH (08:08)
[2017-03-22] MEDS: PEPCID PO SCH ×2 (08:08→20:28)
[2017-03-22 09:26] LABS: BASO% 0.4 % (0.0-0.8); EOS# 0.01 X1000 (0.0-0.7); EOS% 0.4 % (0.0-10.0); HEMATOCRIT 17.7 % (42.0-52.0); HEMOGLOBIN 5.6 g/dL (14.0-18.0); LYMPH# 0.57 X1000 (1.2-3.4); LYMPH% 22.3 % (20.5-51.1); MANUAL DIFF NEEDED? YES; MCH 27.7 PG (27-31); MCHC 31.6 g/dL (33-37); MCV 87.6 FL (81-99); MONO# 1.96 X1000 (0.11-0.59); MONO% 76.9 % (1.7-9.3); MPV 9.5 FL (7.4-10.4); PLT 53 X1000 (130-400); RBC 2.02 XMIL (4.7-6.1)
--- NOTE | 2017-03-22 09:35 | PROGRESS NOTE ---
DATE: 03/22/2017 SUBJECTIVE: The patient states that he feels a little bit better after having hydration overnight and pain medication and antibiotics. His temperature peaked at 102.9, but is back down to normal this morning. OBJECTIVE: Vital Signs: T-max 102.9 degrees, temperature now 98.2, blood pressure 103/44, pulse rate 86, respirations 18, and he is 93% saturated on room air at the time of my examination. HEENT exam: The patient sounds like he has nasal congestion. I did not look in his mouth again. Lungs: Clear to auscultation bilaterally. Cardiovascular: Regular at 86. ASSESSMENT AND PLAN: 1. The patient was transfused platelets last night. Plan to give him 2 units of blood today. I discussed with Dr. Dong briefly about the possibility of a PICC line. I do not think that his survival over next weeks is going to be very good. He says he is tired of getting stuck all the time and have intravenous lines started, so we will try to put in a PICC line to alleviate some of that suffering. 2. The patient will continue on Zosyn. 3. Pain control is adequate with scheduled dosing of morphine. 4. I discussed with the family if he remained with no fever or low-grade fever over the next 24 hours, we would likely get him home this weekend. cc: Dread Chamberlain MD
[2017-03-22 09:41] LABS: INR 1.1; PROTIME 11.6 Seconds (9.2-11.7)
[2017-03-22 09:49] LABS: LYMPHS 36 % (21-51); MONO 62 % (1-9)
--- NOTE | 2017-03-22 09:58 | HISTORY AND PHYSICAL ---
CHIEF COMPLAINT: Fever, weakness. HISTORY OF PRESENT ILLNESS: This 71-year-old white male with known aplastic anemia, neutropenia and thrombocytopenia presented to Dr. Dong's office for his usual, but frequent followup for transfusion. He was feeling really bad and had a fever of 102. The patient had been seen by me in the emergency room earlier in the week, and CT scan of the head was obtained because the patient had a severe headache. There was no evidence of bleeding, but instead he had a right ethmoid sinusitis and was given Augmentin and pain medications. This apparently was not doing the trick, and Dr. Dong thought it prudent to put the patient in the hospital for IV antibiotics and transfusion. PAST MEDICAL HISTORY: 1. Chronic obstructive pulmonary disease. 2. Aplastic anemia/leukemia, secondary to myelodysplastic syndrome. PAST SURGICAL HISTORY: 1. Appendectomy. 2. Back surgery. 3. Multiple procedures for injuries sustained in [place]. SOCIAL HISTORY: The patient is a nonsmoker and nonuser of alcohol. His daughter is visiting from [place], and his son lives next door and is frequently present. ALLERGIES: No known drug allergies. REVIEW OF SYSTEMS: The patient has been having a fever. He has headache particularly behind the right eye. He has no neurological deficits. He states that if he keeps his pain medications appropriately spaced, he has reasonable levels of pain control, although is requiring increasing levels to do so. He has a little bit of nasal drainage and congestion. He usually coughs in the morning which is productive of a little bit of sputum, but that is the only time that he coughs. He has no shortness of breath. He denies any chest pain, palpitations. He has had no leg swelling. His appetite has been poor. He continues to lose weight. PHYSICAL EXAMINATION: GENERAL: He is a thin white male in no acute distress. HEENT: On ENT exam, the patient sounds like he has some nasal congestion. Oral mucosa and oropharynx is normal. LUNGS: Clear to auscultation. CARDIOVASCULAR: Regular and not tachycardic. EXTREMITIES: Showed no peripheral edema. ASSESSMENT AND PLAN: 1. Patient is admitted for essentially neutropenic fever with a diagnosis of right ethmoid sinusitis. He will be started on Zosyn, and he has been pancultured at the time of this dictation. 2. The patient's sodium was low at 125. We will continue some normal saline to try and increase this. 3. Toxicology levels ordered. Transfusion of platelets and blood. 4. I made the patient a no code level 1 as per his request. Both he and the family are aware of the grave outcome and increasing difficulty with management in regard to his diagnosis. cc: Dread Chamberlain MD
[2017-03-22] MEDS ORDERED: NS 500 ML ONE (11:00)
[2017-03-22] MEDS: PATIENT'S OWN MED PO SCH (11:23)
[2017-03-22] MEDS ORDERED: TYLENOL PO ONE (14:00)
[2017-03-22] MEDS ORDERED: BENADRYL PO ONE (14:00)
[2017-03-22] MEDS: RESTORIL PO SCH (20:28)
[2017-03-22] MEDS: MIRALAX PO PRN (20:28)
[2017-03-23] MEDS: ZOSYN 3.375 GM/NS 3.375 GM/50 ML IVPB IV SCH ×5 (00:02→23:24)
[2017-03-23] MEDS: NS 1,000 ML IV SCH ×2 (01:42→16:50)
[2017-03-23] MEDS: PRILOSEC PO SCH ×2 (06:19→20:53)
[2017-03-23] MEDS: MORPHINE IR PO PRN ×5 (06:20→23:25)
[2017-03-23] MEDS: VANCOMYCIN IV SCH (06:21)
[2017-03-23] MEDS: NS IV SCH (06:21)
[2017-03-23 06:26] LABS: AGAP 11; BUN 9 mg/dL (8-22); CALCIUM 7.9 mg/dL (8.8-10.2); CHLORIDE 93 mmol/L (98-107); COSMO 260; POTASSIUM 3.7 mmol/L (3.5-5.1); SODIUM 130 mmol/L (136-145); TCO2 26 mmol/L (25-35)
[2017-03-23 06:28] LABS: EOS# 0.01 X1000 (0.0-0.7); EOS% 0.4 % (0.0-10.0); HEMATOCRIT 23.6 % (42.0-52.0); HEMOGLOBIN 7.6 g/dL (14.0-18.0); LYMPH# 0.83 X1000 (1.2-3.4); LYMPH% 32.9 % (20.5-51.1); MANUAL DIFF NEEDED? YES; MCH 27.8 PG (27-31); MCHC 32.2 g/dL (33-37); MCV 86.4 FL (81-99); MONO# 1.68 X1000 (0.11-0.59); MONO% 66.7 % (1.7-9.3); MPV 10.5 FL (7.4-10.4); RBC 2.73 XMIL (4.7-6.1)
[2017-03-23 06:39] LABS: PLT 30 X1000 (130-400)
[2017-03-23 07:16] LABS: BANDS 8 % (0-1); HYPOCHROM 1+; LYMPHS 60 % (21-51); MONO 28 % (1-9)
[2017-03-23] MEDS: THERA M PLUS PO SCH (10:11)
[2017-03-23] MEDS: CARAFATE PO SCH ×4 (10:11→20:53)
[2017-03-23] MEDS: PEPCID PO SCH ×2 (10:11→20:53)
[2017-03-23] MEDS: PATIENT'S OWN MED PO SCH (10:12)
--- NOTE | 2017-03-23 12:59 | Diag Imaging Result Doc PS360 ---
EXAM: CHEST-1 VIEW HISTORY: Congestion/ cough TECHNIQUE: COMPARISON: 03/03/2017 FINDINGS: There is a right-sided PICC line on the current exam. The tip overlies the distal superior vena cava. Lungs are hyperexpanded. The heart is not enlarged. Mild increased interstitial markings in the upper right lung. No pleural effusions identified. IMPRESSION: 1.PICC line in good position 2.I believe there is a small right upper lobe infiltrate. Follow-up PA and lateral recommended.. Electronically signed by Tico Paulino 03/23/2017 12:57 PM
--- NOTE | 2017-03-23 13:56 | PROGRESS NOTE ---
DATE: 03/23/2017 SUBJECTIVE: The patient's chart was reviewed. In summary, patient was admitted on 03/21/2017 with neutropenic fever secondary to an ethmoid sinusitis. The patient was placed on Zosyn therapy. The patient required transfusion of 2 units of platelets and 2 units of packed red blood cells. Initially, the patient complained of a considerable headache. His headache has improved with time. This morning, patient states he feels very weak and with minimal appetite, but is improved from admission. He continues to require supplemental oxygen. He complains of intermittent cough. He denies fevers, chills, or chest discomfort at the present time. OBJECTIVE: Vital Signs: T-max 99.5, heart rate 63 to 87, respirations 16 to 20, blood pressure 105 to 127 over 51 to 59. General: Chronically ill appearing, in no acute distress. Cardiovascular: Regular rate and rhythm. No significant murmurs, rubs, or gallops. Pulmonary: Intermittent wheezing. Rhonchi in the left upper lung field. Abdomen: Soft, nontender, nondistended. Positive bowel sounds. Extremities: Moves all extremities well. No significant clubbing, cyanosis, or edema. Dermatologic: Evaluation reveals multiple ecchymoses but no evidence of rash. LABORATORY DATA: White blood cell count 2.52, hemoglobin 7.3, hematocrit 23.6, and platelet count is 30,000, with 4% neutrophils. Sodium 130, potassium 3.7, chloride 93, bicarbonate 26, BUN 9, creatinine 0.5, glucose 102, calcium 7.9. ASSESSMENT AND PLAN: 1. Neutropenic fevers - Cultures thus far are negative. The patient currently is being treated with Zosyn and vancomycin. We will continue his current regimen, as his overall condition is slowly improving. 2. Ethmoid sinusitis - We will continue aggressive antibiotic intervention as described. Clinically, patient has achieved improvement in his headaches. We will follow. 3. Thrombocytopenia/anemia - The patient does have considerable thrombocytopenia and anemia per examination today. I will discuss this with Dr. Dong and defer transfusion request to him. 4. Myelodysplastic syndrome/acute myeloid leukemia with pancytopenia - Patient is being treated with chemotherapeutic intervention per Dr. Dong. Once again, we will defer management. 5. Cough, congestion, wheezing - I am concerned the patient may have an underlying pulmonary illness. We will check a chest x-ray. We will encourage incentive spirometry and aspiration precautions. We will add DuoNeb every 4 hours. We will continue oxygen per protocol. We will follow this closely, as well. 6. Hyponatremia - Patient's sodium has shown gradual improvement. The patient currently is being treated with 150 mL an hour. We will decrease this to 75 mL an hour. We will follow serial sodium levels. 7. Profound weakness - This likely is secondary to a combination of his acute and chronic illnesses. We will encourage activity as tolerated. 8. Deep vein thrombosis prophylaxis - At this point, patient is not a candidate for Lovenox. I am concerned with SCDs secondary to his low platelet count. We will encourage activity and movement. 9. Disposition - At this point, patient continues to require prison care in a hospital setting. We will plan discharge home once appropriate. cc: MD Dread Shaffer MD
[2017-03-23] MEDS: DUONEB (A & A) INH SCH ×3 (16:44→23:19)
[2017-03-23] MEDS: MIRALAX PO PRN (16:50)
[2017-03-23] MEDS: RESTORIL PO SCH (20:53)
[2017-03-24] MEDS: DUONEB (A & A) INH SCH ×6 (04:12→23:35)
[2017-03-24] MEDS: ZOSYN 3.375 GM/NS 3.375 GM/50 ML IVPB IV SCH ×3 (06:51→17:07)
[2017-03-24] MEDS: PRILOSEC PO SCH ×2 (06:51→20:58)
[2017-03-24] MEDS: NS 1,000 ML IV SCH ×2 (06:55→20:57)
[2017-03-24] MEDS: MORPHINE IR PO PRN ×4 (07:00→17:03)
[2017-03-24 07:16] LABS: AGAP 13; ALBUMIN 3.2 g/dL (3.5-5.0); ALKALINE PHOSPHATASE 59 U/L (32-122); BUN 8 mg/dL (8-22); CALCIUM 8.1 mg/dL (8.8-10.2); CHLORIDE 92 mmol/L (98-107); COSMO 262; GOT 10 U/L (10-34); GPT 10 U/L (10-44); POTASSIUM 3.7 mmol/L (3.5-5.1); SODIUM 131 mmol/L (136-145); TCO2 26 mmol/L (25-35); TOTAL BILIRUBIN 0.68 mg/dL (0.20-1.00)
[2017-03-24 07:41] LABS: EOS# 0.01 X1000 (0.0-0.7); EOS% 0.4 % (0.0-10.0); HEMOGLOBIN 7.9 g/dL (14.0-18.0); LYMPH% 34.8 % (20.5-51.1); MANUAL DIFF NEEDED? YES; MCH 28.4 PG (27-31); MCHC 32.9 g/dL (33-37); MCV 86.3 FL (81-99); MONO# 1.49 X1000 (0.11-0.59); MONO% 64.8 % (1.7-9.3); MPV 11.5 FL (7.4-10.4); PLT 19 X1000 (130-400); RBC 2.78 XMIL (4.7-6.1)
[2017-03-24 07:46] LABS: HYPOCHROM 2+; LYMPHS 52 % (21-51); MONO 44 % (1-9)
[2017-03-24] MEDS: DULCOLAX PR ONE ×2 (09:55→10:03)
[2017-03-24] MEDS: CARAFATE PO SCH ×4 (09:55→20:59)
[2017-03-24] MEDS: PEPCID PO SCH ×2 (09:55→20:58)
[2017-03-24] MEDS: PATIENT'S OWN MED PO SCH (10:00)
[2017-03-24] MEDS: THERA M PLUS PO SCH (10:00)
--- NOTE | 2017-03-24 11:57 | PROGRESS NOTE ---
DATE: 03/24/2017 SUBJECTIVE: This morning, patient states, overall, he feels slightly improved from yesterday. His headaches continue to be improve. His energy level is low, but improving. His p.o. intake is marginal. He had an adequate bowel movement after several days without this morning. He denies fevers, chills, nausea, vomiting, shortness of breath, or chest discomfort. His cough and congestion is present, but improving with the addition of nebulizers. OBJECTIVE: Vital Signs: T-max 99.6 degrees, heart rate 74-92, respirations 18-20, blood pressure 105-127/48-59. General: Chronically ill-appearing, no acute distress. Cardiovascular: Regular rate and rhythm. No significant murmurs, rubs, or gallops. Pulmonary: Clear to auscultation bilaterally. Abdomen: Soft, nontender, nondistended. Positive bowel sounds. Extremities: Moves all extremities well. No significant clubbing, cyanosis, or edema. Dermatologic: Evaluation reveals multiple ecchymoses. Laboratory Data: White blood cell count 2.3, hemoglobin 7.9, hematocrit 24, platelet count 19,000. Sodium 131, potassium 3.7, chloride 92, bicarb 26, BUN 8, creatinine 0.5, glucose 116, calcium 8.1. Total bilirubin 0.68, total protein 6, albumin 3.2, alkaline phosphatase 59, AST 10, ALT 10. Chest x-ray revealed a possible small right upper lobe infiltrate. Follow up PA and lateral is recommended. ASSESSMENT AND PLAN: 1. Neutropenic fevers-thus far, cultures are negative. For now, as patient is improving clinically, we will continue Zosyn and vancomycin therapy. 2. Ethmoid sinusitis-patient is achieving clinical improvement with decreasing headaches with antibiotic therapy. We will continue his current regimen. 3. Possible right upper lobe infiltrate-this was noted per chest x-ray. At this point, I feel the risks of transporting for a PA and lateral outweigh the benefits. He is improving clinically. For now, we will continue his current antibiotic regimen. We will continue bronchodilators. 4. Thrombocytopenia/anemia-I have discussed the case with Dr. Dong. We will defer a transfusion decision to his discretion. 5. Myelodysplastic syndrome/acute myeloid leukemia with pancytopenia-as above, we will defer management to Dr. Dong. 6. Hyponatremia-patient's sodium continues to slowly improve. We will continue intravenous fluids. 7. Profound weakness-patient is achieving very slow improvement. This likely is secondary to a combination of acute and chronic illnesses. 8. Deep venous thrombosis prophylaxis-patient is not a candidate for Lovenox. In the setting of low platelets, I suspect patient will have significant bruising associated with sequential compression devices. We will continue to encourage ambulation within his room. 9. Disposition-at this point, patient continues to require [facility] care in the hospital setting. We will plan discharge home once appropriate. cc: MD Dread Shaffer MD
--- NOTE | 2017-03-24 14:36 | PROGRESS NOTE ---
DATE: 03/24/2017 CHIEF COMPLAINT/HISTORY OF PRESENT ILLNESS: Patient reports he had a good bowel movement this morning. He has been taking MiraLAX. Yesterday once every 6 hours or so. Fevers are resolved. Pain behind the right eye has decreased to 5/10. Much more comfortable at this time. PHYSICAL EXAMINATION: Vital Signs: Afebrile. Temperature 98.8 degrees, pulse 92, blood pressure 116/48. HEENT: EOMI. PERRLA. Anicteric. Cardiac: Regular rate and rhythm. Normal S1, S2. Chest: Clear to auscultation. Abdomen: Soft, nontender, without hepatosplenomegaly or masses. Extremities: No cyanosis, clubbing, or edema. LABORATORY DATA: White count 2.3, hemoglobin 7.9, hematocrit 24, MCV 86, platelets 19,000. ANC 0.00. ASSESSMENT AND PLAN: 1. Myelodysplastic syndrome/acute myeloid leukemia: Last cycle he received 2 days of Dacogen. 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 We have had multiple discussions and patient understands his prognosis. He is DNR level 1. Continue to supportively care for him. 2. Thrombocytopenia: Transfuse for platelet count of less than 10,000 or bleeding. 3. Anemia: Status post PRBC transfusion. Continue to simply monitor. Transfuse if symptomatic or less than 7. 4. Neutropenic fever and sciatic sinusitis: Doing much better with the current antibiotic therapy. We will discuss with Dr. Chamberlain tomorrow and figure out discharge planning. 5. Pain management: Continue morphine as we are doing. Pain is much better. 6. Constipation: He had a bowel movement this morning. Continue MiraLAX p.r.n. cc: MD Dread Posadas MD
[2017-03-24] MEDS: NS IV SCH (17:03)
[2017-03-24] MEDS: VANCOMYCIN IV SCH (17:03)
[2017-03-24] MEDS: RESTORIL PO SCH (20:58)
[2017-03-24] MEDS: TYLENOL PO PRN (21:09)
[2017-03-25] MEDS: ZOSYN 3.375 GM/NS 3.375 GM/50 ML IVPB IV SCH ×5 (00:49→23:39)
[2017-03-25] MEDS: NS 1,000 ML IV SCH ×2 (00:50→15:53)
[2017-03-25] MEDS: MORPHINE IR PO PRN ×5 (03:27→22:46)
[2017-03-25] MEDS: DUONEB (A & A) INH SCH ×5 (03:40→19:54)
[2017-03-25] MEDS: PRILOSEC PO SCH ×2 (05:52→22:38)
[2017-03-25] MEDS: TYLENOL PO PRN ×2 (07:16→14:10)
[2017-03-25 08:19] LABS: EOS# 0.01 X1000 (0.0-0.7); HEMATOCRIT 20.9 % (42.0-52.0); HEMOGLOBIN 6.8 g/dL (14.0-18.0); LYMPH% 28.8 % (20.5-51.1); MANUAL DIFF NEEDED? YES; MCH 28.3 PG (27-31); MCHC 32.5 g/dL (33-37); MCV 87.1 FL (81-99); MONO# 0.73 X1000 (0.11-0.59); MONO% 70.2 % (1.7-9.3); MPV 10.5 FL (7.4-10.4)
[2017-03-25 08:21] LABS: PLT 8 X1000 (130-400)
[2017-03-25 09:02] LABS: LYMPHS 45 % (21-51); MONO 50 % (1-9)
[2017-03-25] MEDS: CARAFATE PO SCH ×4 (09:24→22:38)
[2017-03-25] MEDS: PEPCID PO SCH ×2 (09:24→22:38)
[2017-03-25] MEDS: THERA M PLUS PO SCH (09:24)
[2017-03-25] MEDS: PATIENT'S OWN MED PO SCH (09:25)
--- NOTE | 2017-03-25 09:47 | PROGRESS NOTE ---
DATE: 03/25/2017 SUBJECTIVE: The patient's notes were reviewed from over the weekend. He seems to be doing reasonably well clinically. He continues to have bad laboratory results and has been running a low-grade fever despite antibiotics. I had a very long discussion with the patient and his daughter. I expressed my preference for him to be treated at home as long as he is comfortable. He expressed understanding and is aware of his imminent demise. I told him at the very least, he will require transfusion twice a week and he is aware of this. I also told him that his life expectancy was only a couple of days should he decide to forego the supportive treatment of transfusion therapy. PHYSICAL EXAMINATION: Vital Signs: Temperature 100.8 degrees, pulse rate 104, blood pressure 135/60, 91% saturated on room air. Physical Examination: The patient has a mild rattly cough. He has less in the way of nasal congestion in listening to his voice. He is pale. He is alert and oriented. ASSESSMENT AND PLAN: 1. I plan to transfuse the patient a unit of platelets and a unit of blood today. It would be my preference if we could send him home on an oral antibiotic regimen which had some staphylococcus coverage and then treat him as an outpatient with transfusion therapy about twice a week. 2. The patient will likely continue to run fevers due to his terribly low absolute neutrophil count. I told him that overwhelming infection would be a likely source of downturn or ultimately of his demise. 3. Do not resuscitate level 1. 4. I will try and discuss this case with Dr. Dong later today. 5. Before I left the room, the patient and daughter expressed the fact that the patient had some hallucinations last night when he was by himself. I felt that this was likely medication effect and that as long as he was not having problems with physical or emotional control, that I would rather him be comfortable on his medications even if there are some side effects such as this. The patient and daughter were in agreement. cc: Dread Chamberlain MD
[2017-03-25] MEDS: RESTORIL PO SCH (22:38)
[2017-03-26] MEDS: DUONEB (A & A) INH SCH ×7 (00:23→23:44)
[2017-03-26] MEDS: NS 1,000 ML IV SCH ×2 (05:32→09:02)
[2017-03-26] MEDS: ZOSYN 3.375 GM/NS 3.375 GM/50 ML IVPB IV SCH ×4 (05:32→23:00)
[2017-03-26] MEDS: TYLENOL PO PRN (05:32)
[2017-03-26] MEDS: PRILOSEC PO SCH ×2 (06:07→21:33)
[2017-03-26 06:59] LABS: AGAP 20; BUN 7 mg/dL (8-22); CALCIUM 7.4 mg/dL (8.8-10.2); CHLORIDE 93 mmol/L (98-107); COSMO 273; IRON SATURATION 99 %; POTASSIUM 3.9 mmol/L (3.5-5.1); SODIUM 137 mmol/L (136-145); TCO2 24 mmol/L (25-35); TIBC 135 ug/dL; TOTAL IRON 134 ug/dL (53-167)
[2017-03-26 07:10] LABS: UNBOUND IRON 18 ug/dL (112-346)
[2017-03-26 07:24] LABS: HEMATOCRIT 22.6 % (42.0-52.0); HEMOGLOBIN 7.4 g/dL (14.0-18.0); MANUAL DIFF NEEDED? YES; MCH 29.2 PG (27-31); MCHC 32.7 g/dL (33-37); MCV 89.3 FL (81-99); MPV 10.6 FL (7.4-10.4); PLT 32 X1000 (130-400); RBC 2.53 XMIL (4.7-6.1)
[2017-03-26 08:02] LABS: LYMPHS 35 % (21-51); MONO 50 % (1-9)
[2017-03-26] MEDS ORDERED: TYLENOL PO ONE (08:28)
[2017-03-26] MEDS ORDERED: BENADRYL IV ONE (08:29)
[2017-03-26] MEDS ORDERED: LASIX IV ONE (08:52)
[2017-03-26] MEDS: CARAFATE PO SCH ×4 (08:57→21:33)
[2017-03-26] MEDS: THERA M PLUS PO SCH (08:57)
[2017-03-26] MEDS: PEPCID PO SCH ×2 (08:57→21:33)
[2017-03-26] MEDS: VANCOMYCIN IV SCH (08:57)
[2017-03-26] MEDS: NS IV SCH (08:57)
[2017-03-26] MEDS: PATIENT'S OWN MED PO SCH (08:57)
[2017-03-26] MEDS: TYLENOL PO SCH ×3 (09:03→17:22)
[2017-03-26] MEDS: MORPHINE IR PO PRN ×4 (11:39→21:33)
--- NOTE | 2017-03-26 12:18 | PROGRESS NOTE ---
DATE: 03/26/2017 SUBJECTIVE: The patient states he does not feel as well this morning. He was transfused 2 units of platelets and 1 units of packed cells yesterday. He spiked a fever to 101 this morning. The patient's daughter was present for our conversation. OBJECTIVE: Vital signs: T-max 101.1 degrees. General: The patient sounds like he has a little bit of nasal congestion. He is alert, lucid, conversive, and appropriate. Extremities: Lower extremity edema is present. Lungs: It is noted that the patient's oxygen saturation is lower. He has some slightly decreased breath sounds in the bases. Cardiovascular: Regular but bordering on tachycardia. LABORATORIES: White cell count 1.5, platelet count 32,000, hematocrit 22.6. ASSESSMENT AND PLAN: 1. Again I had a long talk with the patient and his daughter. I told him that we could provide supportive services as long as he was comfortable with that. Unfortunately, I find it unlikely that he will be able to leave the hospital to any sort of quality existence. Despite antibiotics, he continues to run fever. He is requiring transfusions about every 2 days and I think his overall strength is waning. He will be difficult to transport for outpatient followup. There is no way that these transfusions can take place through a home or clinic setting and so we are somewhat stuck here. The patient expressed understanding of this. 2. The patient's lower O2 saturations have prompted me his IV fluids to a TKO rate and give him a little bit of Lasix. He may have developed some small effusions which are impeding his lung function. 3. The patient's neutropenic fever could persist. I do not think any aggressive intervention is warranted here as we will continue to try and treat this empirically. 4. The patient and his daughter are aware that if he stops any of his transfusion therapy that he will within a week either due to infection or severe anemia. 5. Do not resuscitate level 1. cc: Dread Chamberlain MD
[2017-03-26] MEDS: RESTORIL PO SCH (21:33)
[2017-03-27] MEDS: DUONEB (A & A) INH SCH ×2 (04:01→07:12)
[2017-03-27] MEDS: ZOSYN 3.375 GM/NS 3.375 GM/50 ML IVPB IV SCH (05:32)
[2017-03-27] MEDS: PRILOSEC PO SCH (06:08)
[2017-03-27] MEDS: MORPHINE IR PO PRN ×2 (06:20→09:21)
[2017-03-27] MEDS: NS 1,000 ML IV SCH ×2 (06:22→09:10)
[2017-03-27 07:02] LABS: BASO% 0.6 % (0.0-0.8); EOS# 0.03 X1000 (0.0-0.7); EOS% 1.7 % (0.0-10.0); HEMATOCRIT 28.4 % (42.0-52.0); HEMOGLOBIN 9.4 g/dL (14.0-18.0); LYMPH# 0.45 X1000 (1.2-3.4); LYMPH% 25.1 % (20.5-51.1); MANUAL DIFF NEEDED? YES; MCHC 33.1 g/dL (33-37); MCV 87.7 FL (81-99); MONO% 72.6 % (1.7-9.3); MPV 10.7 FL (7.4-10.4); PLT 20 X1000 (130-400); RBC 3.24 XMIL (4.7-6.1)
[2017-03-27 07:13] LABS: MONO 62 % (1-9)
[2017-03-27 07:14] LABS: HYPOCHROM 1+; LYMPHS 30 % (21-51)
[2017-03-27 07:59] VITALS: BP 115/73
[2017-03-27] MEDS ORDERED: LASIX IV ONE (08:00)
[2017-03-27] MEDS: VANCOMYCIN IV SCH (09:09)
[2017-03-27] MEDS: NS IV SCH (09:09)
[2017-03-27] MEDS: CARAFATE PO SCH (09:10)
[2017-03-27] MEDS: THERA M PLUS PO SCH (09:10)
[2017-03-27] MEDS: PATIENT'S OWN MED PO SCH (09:10)
[2017-03-27] MEDS: TYLENOL PO SCH (09:10)
[2017-03-27] MEDS: PEPCID PO SCH (09:10)
--- NOTE | 2017-03-27 09:45 | DISCHARGE SUMMARY ---
ADMISSION DATE: 03/21/2017 DISCHARGE DATE: DISCHARGE DIAGNOSES: 1. Thrombocytopenia. 2. Neutropenia with fever. 3. Acute myelogenous leukemia. 4. Myelodysplastic syndrome. 5. Right ethmoid sinusitis. 6. Other chronic pain. HOSPITAL COURSE: This 71-year-old white male was admitted due to high fevers and neutropenia despite use of antibiotics on an outpatient basis. He had been diagnosed with ethmoid sinusitis. The patient was brought into the hospital and given some IV antibiotics, including Staph coverage. This did not really completely dissipate his fever. In fact, he responded best to use of Tylenol 3 times a day towards the end of his hospitalization in reduction of fever. It was determined that although the patient had ethmoid sinusitis and neutropenia and a high likelihood of infectious process, at some point we discerned that at least some of his fever was also driven by his acute myelogenous leukemia. The patient was transfused with multiple units of platelets and blood and his lab work was relatively good on the day of discharge. We had multiple conversations with the patient and his daughter about future care and how his demise was eminent from either overwhelming infection or from anemia. He wishes to continue transfusions as needed, and as a result a PICC line was placed. We made the patient and daughter aware that the PICC line was a potential source for life- threatening infection, but that at this point we are treating for comfort and palliation and he is much more comfortable with this PICC line in. The multiple transfusions and IV fluids through his hospitalization left him a little bit fluid overloaded and affected his oxygen saturation, most likely due to a moderate sized pulmonary effusions. He was given a couple doses of Lasix and his breathing and oxygenation were improved We had difficulty in managing his pain control, but he ended up taking morphine 45 mg as needed with reasonable control of his chronic headaches and other pains which were not related to his cancer. On the day of discharge, I discussed with the heme/onc nurse practitioner, who was following the case along, and this was our best opportunity to get him home. He will be discharged home with rapid followup to Dr. Ajit Dong's office in the next day or 2 and will likely get transfused a little bit before the weekend. I have sent him home to resume the Augmentin that he was taking before the results of his neutropenia and ethmoid sinusitis. This should be adequate for him. We will revise this as necessary. He is also instructed to take Tylenol 3 times a day. We have written a prescription for morphine. The patient's daughter is aware that they can call my office at anytime or Dr. Dong for assistance should any problems arise. cc: Dread Chamberlain MD MTDD
== END 2017-03-27 11:45 | disposition home or self-care (01) ==
LOC: DIRADM 14:03 → 3N 14:50
PROVIDERS: ADMIT Internal Medicine; ATTEND Internal Medicine

== ENCOUNTER 2017-03-30 14:58 | Inpatient (IN) ==
[2017-03-30] MEDS ORDERED: SALINE LOCK IV FLUID XX ONE (15:43)
[2017-03-30] MEDS ORDERED: ZOFRAN IV PRN (15:43)
[2017-03-30] MEDS ORDERED: MIRALAX PO PRN (15:46)
[2017-03-30] MEDS: TYLENOL PO SCH ×2 (17:35→21:04)
[2017-03-30] MEDS: DILAUDID IV PRN (17:36)
--- NOTE | 2017-03-30 17:43 | HISTORY AND PHYSICAL ---
HISTORY OF PRESENT ILLNESS: This is a 71-year-old patient of Dr. Dread Chamberlain. He has known aplastic anemia, neutropenia, and thrombocytopenia, followed by Dr. Dong. Frequent followup. He recently went home. Was told he had stage IV. Feeling bad and he still continues to have fever, and apparently had some sinus infection. He was put on some antibiotic. He was taking p.o. morphine 45 mg every 2 hours, but it did not seem to be holding the pain. His O2 saturations were dropping. Family was concerned, felt he was uncomfortable, and concerned about his O2 level. He really does not want a face mask, so we are going to go up on his O2 to O2 per nasal cannula. OTHER PAST MEDICAL HISTORY: 1. COPD. 2. Aplastic anemia. 3. Leukemia. 4. Secondary myelodysplastic syndrome. PAST SURGICAL HISTORY: 1. Appendectomy. 2. Back surgery. 3. Multiple procedures for injuries sustained in [facility]. SOCIAL HISTORY: Patient is a nonsmoker, nonuser of alcohol. He has a son who lives next door. Daughter, I think, is visiting here from [place]. ALLERGIES: No known drug allergies. REVIEW OF SYSTEMS: Constitutional: He is not eating well. Poor appetite. Continues to have fever, general malaise, diffuse myalgia. His head is hurting and has a persistent headache. He does feel short of breath. No chest pain, specifically. Gastrointestinal/Genitourinary: His bowels are moving. Musculoskeletal/Neurologic: Just generalized discomfort and pain. PHYSICAL EXAMINATION: VITAL SIGNS: On presentation, temperature was 98.3 degrees, pulse 101, respirations 18, blood pressure 120/47, O2 saturation 94%. HEENT: Pupils are equal and round. No specific sinus tenderness. NECK: CVP less than 6 cm. LUNGS: Clear in all lung babb. CARDIOVASCULAR: Regular rhythm and rate, without murmur or S3. ABDOMEN: Soft. SKIN: Warm and dry. ASSESSMENT AND PLAN: Advanced aplastic anemia with myelodysplastic syndrome and leukemia. We will give him morphine 4-6 mg IV q.2 hours p.r.n. We will cover him with Zosyn antibiotic for sinus organisms and Gram-negative. He is already on Zosyn 2.25 mg IV q.6. Dilaudid 0.5 mg IV q.3 hours p.r.n. and increase his O2. Keep him on 5L nasal cannula. cc: MD Dread Villafana MD
[2017-03-30] MEDS: ZOSYN 2.25 GM/NS 2.25 GM/50 ML IVPB IV SCH ×2 (17:52→21:47)
[2017-03-30] MEDS: CARAFATE PO SCH ×2 (17:52→21:04)
[2017-03-30] MEDS ORDERED: LASIX IV ONE (18:28)
[2017-03-30] MEDS: DUONEB (A & A) INH SCH (21:00)
[2017-03-30] MEDS: PRILOSEC PO SCH (21:04)
[2017-03-30] MEDS: ZANTAC PO SCH (21:04)
[2017-03-31] MEDS: DILAUDID IV PRN ×6 (00:47→18:55)
[2017-03-31] MEDS: ZOSYN 2.25 GM/NS 2.25 GM/50 ML IVPB IV SCH ×4 (04:33→21:36)
[2017-03-31] MEDS: TYLENOL PO SCH ×3 (04:34→21:36)
[2017-03-31] MEDS: PRILOSEC PO SCH ×2 (06:00→21:36)
[2017-03-31] MEDS: DUONEB (A & A) INH SCH ×3 (09:05→21:00)
[2017-03-31] MEDS: VICON-C PO SCH (10:09)
[2017-03-31] MEDS: CARAFATE PO SCH ×4 (10:09→21:36)
[2017-03-31] MEDS: ZANTAC PO SCH ×2 (10:09→21:36)
[2017-03-31] MEDS: THERA M PLUS PO SCH (10:09)
--- NOTE | 2017-03-31 11:25 | PROGRESS NOTE ---
DATE: 03/31/2017 SUBJECTIVE: He states he still is in pretty good pain. He is more comfortable. Seems to be breathing a little better today. He did get a couple of bites down today. The family said he is more lucid and awake today. OBJECTIVE: Temperature 97.9 degrees, pulse 84, respirations 18, blood pressure 91/52, O2 saturation was at 94% on 5 L nasal cannula. Urine output looks like it was over 2 L. No new lab. No pedal edema. No focal point of pain. His head is feeling better. He requested to go up on the pain medicine so we will. ASSESSMENT AND PLAN: 1. Myelodysplastic syndrome, now with leukemia. He recently had aplastic anemia, acute myelocytic leukemia at end stage. We will go up on his Dilaudid. 2. Fever. Unsure of origin. Continue Zosyn. 3. Family wants comfort measures, asked that we not check any labs. I will go up on his Dilaudid to 1 mg intravenous every 3 hours as needed. cc: MD Dread Villafana MD
[2017-04-01] MEDS: DILAUDID IV PRN ×8 (05:08→22:23)
[2017-04-01] MEDS: TYLENOL PO SCH ×3 (05:08→20:25)
[2017-04-01] MEDS: PRILOSEC PO SCH ×3 (05:08→20:25)
[2017-04-01] MEDS: ZOSYN 2.25 GM/NS 2.25 GM/50 ML IVPB IV SCH ×4 (05:08→22:23)
[2017-04-01] MEDS: DUONEB (A & A) INH SCH ×3 (09:31→21:00)
[2017-04-01] MEDS: CARAFATE PO SCH ×4 (09:33→20:25)
[2017-04-01] MEDS: THERA M PLUS PO SCH (09:33)
[2017-04-01] MEDS: VICON-C PO SCH (09:34)
[2017-04-01] MEDS: ZANTAC PO SCH ×2 (09:34→20:25)
[2017-04-01] MEDS: MOTRIN PO PRN (17:13)
[2017-04-01] MEDS: MBX SOLUTION MT PRN (20:39)
[2017-04-02] MEDS: TYLENOL PO SCH ×3 (05:21→21:12)
[2017-04-02] MEDS: ZOSYN 2.25 GM/NS 2.25 GM/50 ML IVPB IV SCH ×4 (05:21→21:12)
[2017-04-02] MEDS: DILAUDID IV PRN ×7 (05:21→19:38)
[2017-04-02] MEDS: PRILOSEC PO SCH ×3 (05:21→21:12)
[2017-04-02] MEDS: MBX SOLUTION MT PRN ×4 (05:38→17:12)
[2017-04-02] MEDS: DUONEB (A & A) INH SCH ×3 (07:34→20:45)
[2017-04-02] MEDS: CARAFATE PO SCH ×4 (09:33→21:12)
[2017-04-02] MEDS: VICON-C PO SCH (09:33)
[2017-04-02] MEDS: ZANTAC PO SCH ×2 (09:33→21:12)
[2017-04-02] MEDS: THERA M PLUS PO SCH (09:33)
[2017-04-02] MEDS: MYCOSTATIN SUSP PO SCH ×4 (09:41→21:12)
[2017-04-02 10:23] LABS: AGAP 9; ALBUMIN 2.6 g/dL (3.5-5.0); ALKALINE PHOSPHATASE 69 U/L (32-122); BUN 9 mg/dL (8-22); CHLORIDE 95 mmol/L (98-107); COSMO 275; GOT 19 U/L (10-34); GPT 32 U/L (10-44); MAGNESIUM 1.8 mg/dL (1.5-2.7); SODIUM 136 mmol/L (136-145); TCO2 32 mmol/L (25-35); TOTAL BILIRUBIN 0.71 mg/dL (0.20-1.00); TOTAL PROTEIN 5.6 g/dL (6.3-8.3)
[2017-04-02 10:26] LABS: BASO% 0.7 % (0.0-0.8); EOS# 0.02 X1000 (0.0-0.7); EOS% 1.3 % (0.0-10.0); HEMATOCRIT 22.9 % (42.0-52.0); HEMOGLOBIN 7.5 g/dL (14.0-18.0); LYMPH# 0.32 X1000 (1.2-3.4); LYMPH% 21.3 % (20.5-51.1); MANUAL DIFF NEEDED? YES; MCHC 32.8 g/dL (33-37); MCV 91.6 FL (81-99); MONO# 1.15 X1000 (0.11-0.59); MONO% 76.7 % (1.7-9.3); MPV 11.5 FL (7.4-10.4); PLT < 6 X1000 (130-400)
--- NOTE | 2017-04-02 10:27 | Diag Imaging Result Doc PS360 ---
EXAM: CHEST-PORTABLE INDICATION: pneumonia TECHNIQUE: One view COMPARISON: 03/23/2017 FINDINGS: Right PICC line is stable. The lungs are hyperinflated, stable. There are increased interstitial markings throughout, likely a combination of interstitial fibrosis and interstitial edema. This is similar to the previous study. There is a focal opacity at the right lung base that is also approximately stable. Pneumonia cannot be excluded. Cardiac silhouette is stable. IMPRESSION: Essentially stable chest. Electronically signed by Efrem Perez 04/02/2017 10:25 AM
[2017-04-02 10:32] LABS: HYPOCHROM 1+; LYMPHS 10 % (21-51); MONO 75 % (1-9)
[2017-04-02] MEDS: MOTRIN PO PRN (10:33)
--- NOTE | 2017-04-02 10:42 | PROGRESS NOTE ---
DATE: 04/02/2017 SUBJECTIVE: Mr. Anand was sitting up in a chair. He is feeling better. Less pain. He is eating better. Remains afebrile. OBJECTIVE: Vital Signs: Temp 97.7 degrees, pulse 84, respirations 16, blood pressure 119/56. HEENT: CVP less than 6 cm. Lungs: Clear in all lung babb. Cardiovascular exam: Regular rhythm and rate without murmur or S3. Abdomen: Soft. Skin: Warm and dry. : Good urine output, over 3 L. ASSESSMENT AND PLAN: 1. Myelodysplastic syndrome now converted to acute myelocytic leukemia. I think it originally started with aplastic anemia and appeared to be approaching end-stage. He is requiring a large dose of Dilaudid for pain control, but does seem to be working. I did add some Motrin to his regimen. 2. Remains afebrile since he has been here. He is on Zosyn empirically. 3. The family wants comfort measures, but he seems to be improving and has talked about going home. So, I think we have to just see if we can convert him over to pain medicine he can take at home. We will check some lab today so we kind of know where we are in preparation for seeing if we can get him back home. cc: MD Dread Villafana MD
[2017-04-02] MEDS ORDERED: RESTORIL PO PRN (10:56)
--- NOTE | 2017-04-02 13:31 | CONSULTATION ---
DATE OF CONSULTATION: 04/02/2017 REASON FOR CONSULT: The patient is known to us with acute leukemia/ myelodysplastic syndrome. Also has ITP. HISTORY OF PRESENT ILLNESS: This unfortunate gentleman with myelodysplastic syndrome converted to AML, has been on Dacogen, last received on March 20, has been in and out of the hospital for various reasons including fever and sinus infections. He is transfusion dependent. Apparently, he had a worsening fever, of greater than 102 and some dyspnea over the weekend. So his son and daughter asked to bring him to the emergency room. They have done a chest x-ray on the patient, which shows the lungs are hyperinflated, but stable. There is no new acute processes noted. Labs shows a white count of 1.5, hemoglobin 7.5, platelet count less than 6000. Patient has been started on Zosyn and is afebrile. Patient has deliberated with his family and is currently requesting that he no longer receive any blood products or transfusions and that he be sent home with hospice. REVIEW OF SYSTEMS: Negative unless indicated in the HPI. 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 ITP and COPD. ALLERGIES: There are no known allergies. SOCIAL/FAMILY HISTORY: Patient denies alcohol, drugs or tobacco use. HOME MEDICATIONS: Remeron, temazepam, morphine. DIAGNOSTIC DATA: as per HPI. PHYSICAL EXAMINATION: General: Patient appears chronically ill in no acute distress. Eyes: Equal, round, symmetric. Cardiovascular: S1, S2 to auscultation with no heaves , lifts, thrills. ENT: There is some thrush noted. Mucous membranes are dry. Pulmonary: Breath sounds clear to auscultation. Normal respiratory effort. Extremities: There is no edema. Musculoskeletal: Moves all extremities. Neurologic: Alert and oriented x3. Psychiatric: Appropriate to the situation. Laboratory data as above. ASSESSMENT AND PLAN: 1. 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 Patient is requesting hospice at this time and no further therapy. This was discussed at length with him and his family and they are quite adamant about their decision. We will consult [facility] and see if patient can go home in the near future on hospice. 2. Ongoing pain. Patient has been requiring quite a bit of Dilaudid. We will increase Dilaudid to 2 mg every 2 hours p.r.n. and consult hospice as above. 3. Pancytopenia. Patient is on Zosyn. Patient does not wish to have any blood transfusions or platelet transfusions, so we will honor his request. Hospice consulted. Dictated by AMY Mendez for Ajit Dong MD cc: AMY Mendez MD [facility] P[facility] Weirich, MD [facility] HOSPITALJace
[2017-04-03] MEDS: DILAUDID IV PRN ×7 (01:53→14:29)
[2017-04-03] MEDS: ZOSYN 2.25 GM/NS 2.25 GM/50 ML IVPB IV SCH ×2 (05:21→10:18)
[2017-04-03] MEDS: PRILOSEC PO SCH ×2 (05:21→06:26)
[2017-04-03] MEDS: TYLENOL PO SCH ×2 (05:21→12:41)
[2017-04-03] MEDS: DUONEB (A & A) INH SCH (07:45)
[2017-04-03 07:50] VITALS: BP 131/58
[2017-04-03] MEDS: VICON-C PO SCH ×2 (07:54→08:08)
[2017-04-03] MEDS: THERA M PLUS PO SCH ×2 (07:54→08:08)
[2017-04-03] MEDS: ZANTAC PO SCH ×2 (07:54→08:08)
[2017-04-03] MEDS: CARAFATE PO SCH ×3 (07:54→12:42)
[2017-04-03] MEDS: MBX SOLUTION MT PRN ×3 (07:56→12:42)
[2017-04-03] MEDS: MYCOSTATIN SUSP PO SCH ×2 (08:00→12:42)
[2017-04-03] MEDS: MOTRIN PO PRN (11:13)
--- NOTE | 2017-04-06 14:00 | DISCHARGE SUMMARY ---
ADMISSION DATE: 03/30/2017 DISCHARGE DATE: 04/03/2017 CURRENT DIAGNOSES: 1. Acute myelogenous leukemia. 2. Pancytopenia. 3. Fever. 4. Other chronic pain. HOSPITAL COURSE: This 71-year-old white male who is dying from acute myelogenous leukemia with pancytopenia was sent home only a few days previously and we tried to keep him comfortable. Unfortunately, he continued to have fever and pain that was not able to be relieved with oral medications. He was brought back into the hospital and we started him back on antibiotics for more or less chronic right ethmoid sinusitis and used IV Dilaudid. He seemed to get some pain relief but the doses of Dilaudid had to be markedly increased. DISCHARGE INSTRUCTIONS: I had andrae discussions with the patient's family and I thought that we should not continue with further transfusions as they had become futile at this point and the patient was very uncomfortable. We decided to opt for comfort measures. We consulted [facility] and the patient was sent home on IV Zosyn as a palliative measure and on IV Dilaudid through a continuous [employer]IT[employer]IST[employer] pump. It is likely that the patient will at home within the next couple of weeks. The family is aware and the patient is in agreement with this plan. cc: Dread Chamberlain MD
== END 2017-04-03 14:40 | disposition hospice, home (50) ==
LOC: DIRADM 14:58 → 4N 15:47
PROVIDERS: ADMIT Internal Medicine; ATTEND Internal Medicine